=== PATIENT | male | born 1990 | race Caucasian/White ===

== ENCOUNTER 2017-03-09 01:09 | Emergency (ER) | payer OTHER ==
[~2017-03-09] VITALS: Ht 170.2 cm; Wt 104.3 kg
[2017-03-09 01:09] VITALS: BP 126/75; PULSE 83; RESP 20; TEMP 98; O2SAT 98
--- NOTE | 2017-03-09 01:09 | NUR ---
Placed in room 6 . Placed on state manager, blood pressure machine and pulse oximeter. To gown for exam. Side rails up.
--- NOTE | 2017-03-09 01:15 | NUR ---
Pt brought to ED by family member s/p ETOH, trip and fall, laceration at R eyebrow approx 2 cm, bleeding is controlled. A&Ox4, denies SOB or chestpain, denies N/V/D. Will continue to monitor
--- NOTE | 2017-03-09 01:45 | NUR ---
MD Rdz at bedside examining pt
[2017-03-09] MEDS ORDERED: LIDOCAINE 1% 10 MG/ML, 20 ML MDV INJ ONE (02:00)
[2017-03-09] MEDS ORDERED: DIPH-TET-PERTUS Vaccine 0.5 ML VIAL (ADACEL) I.M. ONE (02:00)
[2017-03-09 02:50] VITALS: BP 120/76; PULSE 79; RESP 18; TEMP 98; O2SAT 99
--- NOTE | 2017-03-09 02:50 | NUR ---
Patient given written and verbal discharge instructions and verbalizes understanding. ER MD Rdz discussed with patient the results and treatment provided. Patient in stable condition. ID arm band removed. Rx of bactrim and motrin given. Patient educated on pain management and to follow up with PMD. Pain Scale 0/10. Opportunity for questions provided and answered.
== END 2017-03-09 02:50 | disposition home or self-care (01) ==
LOC: SED 01:09
DX: S01.111A Laceration without foreign body of right eyelid and periocular area, initial encounter (principal); W17.89XA Other fall from one level to another, initial encounter; Y93.89 Activity, other specified; Y99.8 Other external cause status; Y92.89 Other specified places as the place of occurrence of the external cause
CPT/HCPCS: 12013; 90471; 90715; 99283; J2001